=== PATIENT | female | born 1975 | race Caucasian/White ===

== ENCOUNTER → 2018-09-13 | Outpatient (CLI) | payer MEDICAID ==
[2018-09-10 22:40] VITALS: BP 120/67
[~2018-09-13] MED LIST: ALBUTEROL0.83 MG/ML IH; AMOXICILLIN 8751 TAB PO; AZO-CRANBERRY450 MG PO; CIPRO 500MG TA500 MG PO; CIPRO500 M1 PO; FAMILY PHARMAC325 MG PO; LEVAQUIN 750MG750 M1 PO; MEDROL 4MG DOSPA4 MG PO; MUCINEX D1 TER PO; NEXIUM20 MG PO; OPTISOURCE TAB1 EAC1 PO; PERCOCET 325 MG1 TA2 PO; PHENAZOPYRIDIN200 M1 PO; PHENERGAN W/CO120 ML PO; POTASSIUM CHLO20 ME3 PO; PYRIDIUM100 M1 PO; SEPTRA DS 8001 TAB PO; TESSALON PERLE200 MG PO; TUSSIONEX PENN115 ML PO; VENTOLIN0.09 MG IH; VITAMIN C500 MG PO; ZOFRAN ODT4 MG PO; ZOFRAN ODT8 MG PO; ZYRTEC ALLERGY10 MG PO
== END ==
LOC: RAD 10:38
DX: N20.0 Calculus of kidney (principal)

== ENCOUNTER → 2018-10-11 | Outpatient (CLI) | payer MEDICAID ==
[2018-09-10 22:40] VITALS: BP 120/67
== END ==
LOC: RAD 08:35
DX: N28.89 Other specified disorders of kidney and ureter (principal); N20.1 Calculus of ureter; N20.0 Calculus of kidney

== ENCOUNTER → 2019-04-23 | Outpatient (CLI) | payer MEDICAID ==
[2018-09-10 22:40] VITALS: BP 120/67
== END ==
LOC: LAB 13:33
DX: R30.0 Dysuria (principal)